=== PATIENT | male | born 1985 ===

== ENCOUNTER 2021-05-12 10:12 | Inpatient (IN) | payer MEDICAID, SELFPAY ==
[2021-05-12 10:51] VITALS: BMI 35.4
--- NOTE | 2021-05-12 13:26 | PC.NURSE ---
pt up pacing halls, pt cont asks for food. snacks given to pt and inst given that snacks are offered at certain times. pt does not seem to understand and cont to request food. pt then asks when he gets pills, asked pt if he was having anxiety or increased VH/SI/HI pt denies
[2021-05-12] MEDS: OLANZapine 5 mg ODT PO (13:40)
[2021-05-12 14:00] VITALS: BP 106/66; PULSE 86; RESP 18; TEMP 36.7; O2SAT 97
[2021-05-12] MEDS: haloperidol 5 mg Tablet PO (14:53)
[2021-05-12 21:12] VITALS: BP 111/75; PULSE 86; RESP 18; TEMP 36.6; O2SAT 97
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
[2021-05-13] MEDS: nicotine 2 mg Gum BUCCAL (13:26)
[2021-05-13 14:00] VITALS: BP 102/62; PULSE 87; RESP 18; TEMP 36.4; O2SAT 95
[2021-05-13] MEDS: hyDROXYzine 25 mg Capsule 50 MG PO (15:29)
--- NOTE | 2021-05-13 15:44 | PC.NURSE ---
PATIENT PACING HALLS. REPORTS HES STARTING TO FEEL ANXIOUS. VISTARIL 50MG ADMINISTERED. WILL MONITOR FOR DRUG EFFECTIVENESS
[2021-05-13 22:00] VITALS: BP 110/71; PULSE 85; RESP 16; TEMP 36.4; O2SAT 97
[2021-05-14] MEDS: OLANZapine 5 mg ODT PO ×2 (00:35→16:23)
--- NOTE | 2021-05-14 04:27 | PC.NURSE ---
0035 Patient came out of his room yelling that we let him sleep all day and now he can't sleep. He began to yell louder as he walked by the nurse's station. With 2 nurses we tried to speak to the patient. He was not listening to anything we said. We offered food and he refused. We offered medication for anxiety. He held his pointer finger up to this telegraphic typewriter operator chief and said Leave me alone He continued to yell disturbing other patients. Security was called. When security got here the patient had gotten his pillow and was alying on the bench by the nurse's station. When the patient saw security he got up quickly and went towards his room. Patient then came back out of his room and was arguing with security. Dr. Sharpe was called to inform him that the patient was escalating and needed medication. A B52 was drawn up and a zyprexa 5 mg tab was obtained. 2 nurses and security went to his room. He was given a choice of a pill or a shot, Patient finally chose the pill. He layed back down on his bed. Patient came to the nurse's station about 15 minutes later and got some water and a pudding. He fell asleep shortly there after and has remained asleep.
[2021-05-14 06:00] VITALS: RESP 16
[2021-05-14 14:00] VITALS: BP 108/74; PULSE 78; RESP 18; TEMP 36.8; O2SAT 98
[2021-05-14] MEDS: nicotine 2 mg Gum BUCCAL (14:34)
--- NOTE | 2021-05-14 17:46 | P.NPUPN_ITS ---
Subjective NPU Subjective: Interval history: Patient presents today continuing to have confusion and changes in what he understands his circumstances are for discharge. Ultimately we were able to get a hold of his sister and she gave the impression that she would be able to pick him up tomorrow but at least our conversation suggested she did not want him to just be dropped off at her place by himself. She wants to interact with him and see that he is doing better. We continue to try to work with him to understand what medication he was on in the past he has been taking some Zyprexa Haldol Vistaril here reports that these things are helpful. We discussed the risk- benefit alternatives of continuing Vistaril and likely Zyprexa after discharge given he is been taking those daily and he understood and agreed proceed as is documented in this note. It is unclear at times whether there is a communication barrier or a psychosis barrier as he is seen occasionally speaking to himself in a fairly psychotic manner. He continues to be fairly intrusive and repetitive asking the same question to different members of the team again and again and not seeming to have relief when answer is given. Mental Status Exam MSE Comments: This is an overweight, well-developed male with hospital scrubs on and adequate grooming and limited eye contact. No abnormal movements except for mild psychomotor retardation. Cooperative with exam in no acute distress. Speech was decreased rate and volume. Patient mood described as ?better with my medications?, affect congruent. Thought process, organized. Thought content: patient denies any suicidal or homicidal ideations, no delusions reported or noted, and denies any auditory or visual hallucinations but is seen from time to time talking to himself. Attention and concentration are intact and memory is reliable but none were formally tested. He is alert and oriented three times. Insight and judgment are limited. Impulse control is limited. Vitals/I&O/Wt Last Vital Signs Temp 97.9 F 05/14/21 21:58 Pulse 86 05/14/21 21:58 Resp 18 05/14/21 21:58 BP 109/72 05/14/21 21:58 Pulse Ox 97 05/14/21 21:58 A&P Assessment and plan (1) Alcohol dependence: Status: Acute (2) Major depressive disorder, recurrent: Status: Acute (3) PTSD (post-traumatic stress disorder): Status: Acute Plan This is a 36 year old male with PTSD, depression and alcohol use disorder who presents reporting that he was having problems off of his medications but is feeling better now that he is on them. Continue current medications with plan to transition Zyprexa to standing bedtime dose and continue as needed medications. Encourage individual, group and milieu therapy Continue q-15 minute check for safety Recommend sober living treatment at the highest level of care to which the patient is willing to commit.? Involuntary Hold Information 96 Hour Hold: 96 Hour Involuntary Admission: No Attestations NPU Medical Necessity Statement*: Inpatient hospitalization is medically necessary and the clinically appropriate intervention at this time. We will monitor medications and make changes as indicated. Likely length of stay is 1-3 days. Coding Level of Care Code Acute Medical Billing Manager for Srikanth Hinds Diagnoses Alcohol dependence F10.20 Major depressive disorder, recurrent F33.9 PTSD (post-traumatic stress disorder) F43.10
[2021-05-14] MEDS: hyDROXYzine 25 mg Capsule 50 MG PO (18:20)
[2021-05-14] MEDS: haloperidol 5 mg Tablet PO (18:38)
--- NOTE | 2021-05-14 18:39 | PC.NURSE ---
Pt was upset pacing up and down the halls, talking to himself and screaming, get the Fuck away from me . Administered 5mg haldol to pt for AH/VH. Pt stated that he was hearing voices and seeing shadows.
[2021-05-14 21:58] VITALS: BP 109/72; PULSE 86; RESP 18; TEMP 36.6; O2SAT 97
[2021-05-15] MEDS: OLANZapine 5 mg ODT PO ×2 (01:31→08:33)
--- NOTE | 2021-05-15 01:32 | PC.NURSE ---
Patient up pacing halls and endorses hearing voices, talking to self in hungarian and turkish. C/O anxiety as well. PRN Olanzapine given as ordered.
[2021-05-15] MEDS: nicotine 2 mg Gum BUCCAL ×4 (01:55→13:21)
[2021-05-15 06:00] VITALS: BP 96/63; PULSE 61; RESP 18; TEMP 36.4; O2SAT 98
[2021-05-15] MEDS: haloperidol 5 mg Tablet PO (10:02)
[2021-05-15] MEDS: hyDROXYzine 25 mg Capsule 50 MG PO (10:02)
--- NOTE | 2021-05-15 10:39 | PC.NURSE ---
Pt received his phyzer covid booster shot today, administered in left deltoid.
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
[2021-05-15 11:35] VITALS: BP 96/63; PULSE 61; RESP 18; TEMP 36.4; O2SAT 98
[2021-05-15 14:00] VITALS: RESP 18
[2021-05-15] MEDS: OLANZapine 10 mg TABLET PO (20:36)
[2021-05-15 21:01] VITALS: BP 98/67; PULSE 68; RESP 18; TEMP 36.5; O2SAT 98
[2021-05-16 06:00] VITALS: BP 129/86; PULSE 81; RESP 17; TEMP 37.2; O2SAT 98
--- NOTE | 2021-05-16 08:45 | PC.NURSE ---
DC PATIENT STABLE TO DC AT THIS TIME. LEAVING WITH [employer]. HAS ALL PERSONAL BELONGINGS AND MEDICATIONS. DENIES ALL SI/HI AND AVH.
== END 2021-05-16 08:45 | disposition home or self-care (01) | DRG 885 ==
PROVIDERS: Admitting Provider Psychiatry & Neurology Psychiatry; Visit Provider Psychiatry & Neurology Psychiatry
DX: F33.9 Major depressive disorder, recurrent, unspecified (principal); R45.851 Suicidal ideations; F41.9 Anxiety disorder, unspecified; F17.220 Nicotine dependence, chewing tobacco, uncomplicated; F17.210 Nicotine dependence, cigarettes, uncomplicated; Z91.14 Patient's other noncompliance with medication regimen; Z81.8 Family history of other mental and behavioral disorders; I10 Essential (primary) hypertension; F43.10 Post-traumatic stress disorder, unspecified; F10.20 Alcohol dependence, uncomplicated
CPT/HCPCS: 97150; 97165